=== PATIENT | female | born 1980 | race African-American/Black ===

== ENCOUNTER 2016-08-31 09:05 | Emergency (ER) | payer OTHER ==
[2016-08-31 09:20] VITALS: BP 109/68; PULSE 98; TEMP 97.8; BMI 23.8
--- NOTE | 2016-08-31 10:12 | PDOC ---
History of Present Illness - General Chief Complaint: Laceration Stated Complaint: LT MID FINGER LACERATION Time Seen by Provider: 08/31/16 09:38 History Source: Patient Exam Limitations: No Limitations - History of Present Illness Initial Comments: 08/31/16 10:16 Chief complaint: Laceration to middle finger cut on knife History of present illness: Patient is a 36-year-old female with no significant medical problems here today with a superficial linear laceration to her left middle finger palmar aspect after cutting it on a knife at 1 AM today. Patient has full range of motion of left middle finger. Patient denies any numbness of her left middle finger or hand. Patient is up-to-date with tetanus. Patient denies any pain currently and finger. Occurred: reports: this morning (at 1 am ) Severity: reports: moderate (left middle palmar finger) Pain Location: reports: upper extremity (middle left finger) Method of Injury: Yes: other (cut on knife]) Modifying Factors: improves with: other (direct pressure) Past History - Past Medical History Allergies/Adverse Reactions: Allergies Allergy/AdvReac Type Severity Reaction Status Date / Time No Known Allergies Allergy Verified 08/31/16 09:07 Home Medications: Ambulatory Orders No Home Medications 0 dose .ROUTE UTDICT 03/26/13 Other medical history: DENIES. - Psycho/Social/Smoking Cessation Hx Anxiety: No Suicidal Ideation: No Smoking Status: No Smoking History: Current some day smoker Have you smoked in the past 12 months: Yes Number of Cigarettes Smoked Daily: 0 Information on smoking cessation initiated: No Review of Systems - Review of Systems Able to Perform ROS?: Yes Constitutional: No: Symptoms Reported HEENTM: No: Symptoms Reported Respiratory: No: Symptoms reported Cardiac (ROS): No: Symptoms Reported ABD/GI: No: Symptoms Reported Musculoskeletal: No: Symptoms Reported Integumentary: Yes: Other (left middle finger laceration palmar aspect ) Neurological: No: Symptoms reported *Physical Exam - Vital Signs Last Vital Signs Temp Pulse Resp BP Pulse Ox 97.8 F 98 H 19 109/68 99 08/31/16 09:07 08/31/16 09:07 08/31/16 09:07 08/31/16 09:07 08/31/16 09:07 - Physical Exam General Appearance: Yes: Appropriately Dressed Comments:: 02/24/17 10:13 radial pulse left 4 + Extremity: positive: Normal Capillary Refill, Normal Range of Motion (left middle finger at pip, DIP, MCP jt ) Integumentary: positive: Other (linear superfical laceration left palmar middle finger middle phalanx) Neurologic: positive: Normal Response, Respond to painful stimul (left middle finger ). negative: Numbness, Sensory Deficit (left middle finger) Procedures - Consent Consent obtained: From Patient - Laceration/Wound Repair Left Volar 3rd digit Finger Wound Length: 2.6 to 5.0 cm Wound Explored: clean Wound's Depth, Shape: superficial, linear Irrigated w/ Saline: Yes Betadine Prep: Yes Anesthesia: 1% Lidocaine Amount of Anesthetic (ccs): 3 Wound Repaired With: Sutures Number of Sutures: 7 (interrupted) Deep Layer Suture Size/Type: 5:0 Number of Deep Layer Sutures: 0 Sterile Dressing Applied: Yes Splint Applied: No Sling Applied: No Medical Decision Making - Medical Decision Making 08/31/16 10:17 Patient is a 36-year-old female with no significant medical problems here today with a superficial linear laceration to her left middle finger palmar aspect after cutting it on a knife at 1 AM today. Patient has full range of motion of left middle finger. Patient denies any numbness of her left middle finger or hand. Patient is up-to-date with tetanus. Patient denies any pain currently and finger. Laceration left middle finger palmar aspect Plan: 7 interrupted sutures left middle finger up to date with tetanus *DC/Admit/Observation/Transfer Diagnosis at time of Disposition: Laceration of finger of left hand Qualifiers: Encounter type: initial encounter Qualified Code(s): S61.219A - Laceration without foreign body of unspecified finger without damage to nail, initial encounter - Discharge Dispostion Disposition: HOME Condition at time of disposition: Stable - Patient Instructions Additional Instructions: Left middle finger with antibacterial soap and water pat dry and apply tiny amount of bacitracin ointment twice daily cover with Band-Aid the day when out of the home let air out at night Return to emergency room for suture removal in 10-14 days or sooner if any redness around wound or discharge from wound Take acetaminophen as needed for pain or ibuprofen as directed by automotive manufacturer Patient Voiced understanding of discharge instructions and all questions were answered
== END 2016-08-31 10:24 | disposition home or self-care (01) ==
LOC: JER 09:05 → JERFT 09:05
PROC: 0HQGXZZ Repair Left Hand Skin, External Approach (ICD-10-PCS; principal; 2016-08-31)
DX: S61.213A Laceration without foreign body of left middle finger without damage to nail, initial encounter (principal); W26.0XXA Contact with knife, initial encounter; Y93.89 Activity, other specified; Y92.89 Other specified places as the place of occurrence of the external cause
CPT/HCPCS: 12002-25; 99282-25

== ENCOUNTER 2016-09-12 17:56 | Emergency (ER) | payer OTHER ==
[2016-09-12 18:23] VITALS: BP 95/65; PULSE 81; TEMP 97.8; BMI 22.8
--- NOTE | 2016-09-12 18:33 | PDOC ---
Suture Removal/Wound Check HPI - History of Present Illness Chief Complaint: Suture/Staple Removal(Here) Stated Complaint: STITCHES REMOVAL Time Seen by Provider: 09/12/16 18:21 History Source: Yes: Patient Exam Limitations: Yes: No Limitations [facility]ated at[facility] Date of Last ED visit: 08/31/16 - Previous ED Treatment Type of procedure performed on last visit: Yes: Laceration Repair Tetanus Immunization: Yes: Up to Date Antibiotics Prescribed: No - Onset of Previous Treatment Date of Occurence: 08/31/16 Comment:: 36 yo F presents for suture removal. She states that there has been some pain to the area. No purulent drainage. She slammed the same finger in a door a few days ago and noted a little bleeding. Past History - Past Medical History Allergies/Adverse Reactions: Allergies No Known Allergies Allergy (Verified 09/12/16 18:19) Home Medications: Ambulatory Orders No Home Medications 0 dose .ROUTE UTDICT 03/26/13 - Reproductive History LMP: 03/26/13 - Immunization History Tetanus Status: More than 5 years - Social History Smoking History: No Smoking Status: Never smoked Number of Ciarettes Per Day: 0 Alcohol Use: occasionally Drug Use: none Suture Removal/Wound Check PE - Physical Exam Laceration/Wound Check Symptoms: reports: Pain, Bleeding, Improved Comments: GENERAL: Well appearing. SKIN: Healing L 3rd finger laceration. No drainage. Location of Laceration/Wound: left: Finger *Review of Systems - Review of Systems Able to Perform ROS?: Yes Comments:: GENERAL/CONSTITUTIONAL: No fever or chills. No weakness. MUSCULOSKELETAL: No joint or muscle swelling or pain. No neck or back pain. SKIN: No rash. +Healing L finger lac. NEUROLOGIC: No headache, vertigo, loss of consciousness, or change in strength/ sensation. Procedures - Additional Procedures Additional Procedures: other Progress: 09/12/16 18:34 7 Sutures removed. Of note, the sutures were greasy with neosporin that the patient had applied. Small piece of the suture remained in the wound, unable to remove it. Counseled patient to let the wound dry. Medical Decision Making - Medical Decision Making 09/12/16 18:51 Attempted to call patient to to reexamine the wound and attempt to remove the small piece of suture, she had already departed ED despite being asked to wait for DC paperwork. *DC/Admit/Observation/Transfer Diagnosis at time of Disposition: Visit for suture removal - Discharge Dispostion Disposition: HOME Condition at time of disposition: Stable Admit: No
== END 2016-09-12 18:57 | disposition home or self-care (01) ==
LOC: JERFT 17:56
DX: Z48.02 Encounter for removal of sutures (principal)
CPT/HCPCS: 99281-25

== ENCOUNTER 2020-01-15 07:55 | Emergency (ER) | payer OTHER ==
[2020-01-15 08:09] VITALS: BP 102/62; PULSE 83; TEMP 98.6; BMI 20.9
[2020-01-15 09:27] LABS: HCG,QUALITATIVE URINE Negative
--- NOTE | 2020-01-15 09:43 | PDOC ---
History of Present Illness - General Chief Complaint: Pain, Acute Stated Complaint: ABD PAIN Time Seen by Provider: 01/15/20 09:00 - History of Present Illness Initial Comments: 39 YOF h/o eczema presents with nausea, constipation, rectal bleeding, back and suprapubic pain of 4 days duration. Per patient she began to experience some rectal pain and abdominal discomfort 4 days prior to arrival. 3 days ago she began to have difficulty w/ bowel movements, feeling that her stool was very hard and difficult/painful to pass. After passing stool she noted blood on the toilet paper. Her abdominal, lower back, and rectal pain are continuous however are exacerbated when attempting to defecate. She has used topical application of coconut oil to her anus in an attempt to relieve her symptoms, however she reports that this has not helped. She delivered two children to term w/o complication. She has no history of abdominal surgery. Her last BM was yesterday and she is still passing flatus. She denies urinary symptoms. She denies diarrhea, vomiting, CP, and SOB, fever or chills. 01/15/20 15:21 Past History - Travel History Traveled outside of the country in the last 30 days: No Close contact w/someone who was outside of country & ill: No - Medical History Allergies/Adverse Reactions: Allergies Allergy/AdvReac Type Severity Reaction Status Date / Time No Known Allergies Allergy Verified 01/15/20 08:02 Home Medications: Ambulatory Orders No Home Medications 0 dose .ROUTE UTDICT 03/26/13 Glycerin Suppository Adult - 1 each RC DAILY PRN #7 supp.rect 01/15/20 Nitrofurantoin Macrocrystal [Nitrofurantoin] 100 mg PO BID 5 Days #10 capsule 01/15/20 COPD: No - Psycho-Social/Smoking History Smoking Status: No Smoking History: Current some day smoker Have you smoked in the past 12 months: Yes Number of Cigarettes Smoked Daily: 0 Information on smoking cessation initiated: Yes 'Breaking Loose' booklet given: 09/12/16 - Substance Abuse Hx (Audit-C & DAST Scrn) How often the patient has a drink containing alcohol: Monthly or less Score: In Men: 4 or > Positive; In Women: 3 or > Positive: 1 Screen Result (Pos requires Nsg. Audit-10AR): Negative In the last yr the pt used illegal drug/Rx for NonMed reason: No Score: Yes response is considered Positive: 0 Screen Result (Positive result requires Nsg. DAST-10): Negative Review of Systems - Review of Systems Constitutional: Yes: See HPI HEENTM: Yes: See HPI Respiratory: Yes: See HPI Cardiac (ROS): Yes: See HPI ABD/GI: Yes: See HPI : Yes: See HPI Musculoskeletal: Yes: See HPI Integumentary: Yes: See HPI Neurological: Yes: See HPI Endocrine: Yes: See HPI Hematologic/Lymphatic: Yes: See HPI *Physical Exam - Vital Signs Last Vital Signs Temp Pulse Resp BP Pulse Ox 98.6 F 83 18 102/62 100 01/15/20 07:55 01/15/20 07:55 01/15/20 07:55 01/15/20 07:55 01/15/20 07:55 - Physical Exam General Appearance: Yes: Nourished, Appropriately Dressed Respiratory/Chest: positive: Lungs Clear, Normal Breath Sounds, Respiratory Distress Cardiovascular: positive: Regular Rhythm, Regular Rate, S1, S2 Gastrointestinal/Abdominal: positive: Normal Bowel Sounds, Tender, Flat, Soft ED Treatment Course - ADDITIONAL ORDERS Additional order review: Laboratory Results 01/15/20 08:25 Urine HCG, Qual Negative Medical Decision Making - Medical Decision Making 39 YOF h/o eczema presents with nausea, constipation, rectal bleeding, back and suprapubic pain of 4 days duration, exacerbated when attempting to defecate. She has no history of abdominal surgery. Her last BM was yesterday and she is still passing flatus. She denies urinary symptoms. She denies diarrhea, vomiting, CP, and SOB, fever or chills. Vital stable on arrival, exam revealing only of suprapubic pain to palpation. ddx includes but is not limited to constipation, hemorrhoids, anal fissure, UTI. plan: UA, Urine Reassess: UA revealing of 1+ leukocyte esterase, will give 1 dose nitrofurantoin in ED and discharge with prescription for abx and glycerin suppository. Dispo: DC to home with instructions to take prescribed meds, drink fluids, eat foods high in fiber, and continue physical activity. Discharge - Discharge Information Problems reviewed: Yes Clinical Impression/Diagnosis: Constipation Qualifiers: Constipation type: unspecified constipation type Qualified Code(s): K59.00 - Constipation, unspecified Condition: Good Disposition: HOME - Admission No - Additional Discharge Information Prescriptions: Glycerin Suppository Adult - 1 each RC DAILY PRN #7 supp.rect PRN Reason: Constipation Nitrofurantoin Macrocrystal [Nitrofurantoin] 100 mg PO BID 5 Days #10 capsule - Follow up/Referral Referrals: Onesimo Morrow [Primary Care Provider] - - Patient Discharge Instructions Patient Printed Discharge Instructions: DI for Urinary Tract Infection (UTI), DI for Constipation Additional Instructions: You were seen in the emergency department for symptoms of constipation and rectal bleeding. You were given a urinalysis which showed evidence of a UTI. You also received a urine test which was negative. You also received a rectal exam which revealed no abnormalities. You were prescribed antibiotics to treat your UTI. You were considered medically stable and discharged with instructions to maintain a healthy diet high in fiber, drink plenty of fluids, and exercise regularly. If your symptoms persist you can take an over the counter stool softener such as Colace. Please return to the emergency department if your symptoms worsen, you find excessive blood in your stool, you begin vomiting, or have fever. - Post Discharge Activity Work/Back to School Note: Back to Work
[2020-01-15 09:46] LABS: EPI CELLS 18 /uL (0-25.1); HYALINE CASTS 1 /uL (0-3.1); URINE APPEARANCE CLEAR; URINE BACTERIA 369 /uL (0-1359); URINE BILIRUBIN NEGATIVE (NEGATIVE); URINE COLOR YELLOW; URINE GLUCOSE (UA) NEGATIVE (NEGATIVE); URINE KETONE NEGATIVE (NEGATIVE); URINE LEUK ESTERASE 1+ (NEGATIVE); URINE NITRITE NEGATIVE (NEGATIVE); URINE PROTEIN NEGATIVE (NEGATIVE); URINE RBC 4 /uL (0-23.9); URINE UROBILINOGEN 0.2 mg/dL (0.2-1.0); URINE WBC 30 /uL (0-25.8)
[2020-01-15] MEDS ORDERED: NITROFURANTOIN MACROCRYSTAL 50 MG CAPSULE (FP) PO SCH (10:00)
[2020-01-15] MEDS ORDERED: NITROFURANTOIN MACROCRYSTAL 50 MG CAPSULE (FP) ONE (10:15)
--- NOTE | 2020-01-15 10:41 | PDOC ---
Attending Attestation - Resident Resident Name: Nino Wilson - ED Attending Attestation I have performed the following: I have examined & evaluated the patient, The case was reviewed & discussed with the resident, I agree w/resident's findings & plan, Exceptions are as noted - HPI HPI: 01/15/20 12:08 see below - Physicial Exam PE: 01/15/20 12:01 GENERAL: The patient is awake, alert, and fully oriented, Nontoxic - in no acute distress. ABDOMEN: Soft, nontender, No guarding, no rebound. No CVA tenderness - Medical Decision Making 01/15/20 11:00 39y F presents with complain tof lower abdominl pain and constipation, p noted some blood on her toilet paper today. Patient notes that approximately 1 week she has been having difficulty having a bowel movement and has been having very hard stools. stool is brown, no blood on stool, blood onl on tisue and she feels a small mass when she whiped. also notes some dysuria/frequency. Patient does endorse changing her diet as she has been working longer hours and has been eating unhealthfully which is atypical for her. Patient denies any fever, chills, nausea, vomiting on exam pt well apering no distress abd: soft nontender suspect constipation, possible hemorrhoidal recommend diet changes, fiber, hydration abd soft nonender dont think thre is an acute surgical process ua sugestive of uti will treat with abx return precautions were discusse d Discharge - Discharge Information Problems reviewed: Yes Clinical Impression/Diagnosis: Constipation Qualifiers: Constipation type: unspecified constipation type Qualified Code(s): K59.00 - Constipation, unspecified Condition: Good Disposition: HOME - Additional Discharge Information Prescriptions: Glycerin Suppository Adult - 1 each RC DAILY PRN #7 supp.rect PRN Reason: Constipation Nitrofurantoin Macrocrystal [Nitrofurantoin] 100 mg PO BID 5 Days #10 capsule - Follow up/Referral Referrals: Onesimo Morrow [Primary Care Provider] - - Patient Discharge Instructions Patient Printed Discharge Instructions: DI for Urinary Tract Infection (UTI), DI for Constipation Additional Instructions: You were seen in the emergency department for symptoms of constipation and rectal bleeding. You were given a urinalysis which showed evidence of a UTI. You also received a urine test which was negative. You also received a rectal exam which revealed no abnormalities. You were prescribed antibiotics to treat your UTI. You were considered medically stable and discharged with instructions to maintain a healthy diet high in fiber, drink plenty of fluids, and exercise regularly. If your symptoms persist you can take an over the counter stool softener such as Colace. Please return to the emergency department if your symptoms worsen, you find excessive blood in your stool, you begin vomiting, or have fever. - Post Discharge Activity Work/Back to School Note: Back to Work
== END 2020-01-15 11:43 | disposition home or self-care (01) ==
LOC: JER 07:55
DX: K59.00 Constipation, unspecified (principal)
CPT/HCPCS: 36415; 81003; 84703; 87086; 99284-25

== ENCOUNTER 2020-04-05 05:36 | Emergency (ER) | payer OTHER ==
[2020-04-05] MEDS ORDERED: DIPHTH,PERTUSS(ACELL),TET 0.5 ML DISP.SYRIN IM ONE ×2 (05:50→05:57)
[2020-04-05] MEDS ORDERED: CEPHALEXIN MONOHYDRATE 500 MG CAPSULE (UD) PO ONE (05:50)
[2020-04-05] MEDS ORDERED: BACITRACIN 15 GM TUBE TOPICAL OINTMENT TP ONE (05:51)
[2020-04-05 05:54] VITALS: BP 138/72; PULSE 79; TEMP 98.9; BMI 210.3
--- OUTSIDE RECORDS SUMMARY | 2020-04-05 05:55 | XMS ---
:1980 Author Organization [facility] Support Name Relationship Address Phone [employer] Unavailable [address] [place] [address] [employer] Unavailable [address] [phone] [place] [address] MARIA ANTONIA MARCOS FRIEND [address] [place] [address] JAYE, DARIEL SISTER [address] [place] [address] JAYE, DARIEL Sister [address] [place] [address] Re-disclosure Warning The records that you are about to access may contain information from federally- assisted alcohol or drug abuse programs. If such information is present, then the following federally mandated warning applies: This information has been disclosed to you from records protected by federal confidentiality rules (42 CFR part 2). The federal rules prohibit you from making any further disclosure of this information unless further disclosure is expressly permitted by the written consent of the person to whom it pertains or as otherwise permitted by 42 CFR part 2. A general authorization for the release of medical or other information is NOT sufficient for this purpose. The Federal rules restrict any use of the information to criminally investigate or prosecute any alcohol or drug abuse patient.The records that you are about to access may contain highly sensitive health information, the redisclosure of which is protected by Article 27-F of the [facility] Public Health law. If you continue you may haveaccess to information: Regarding HIV / AIDS; Provided by facilities licensed or operated by the [facility] Office of Mental Health; or Provided by the [facility] Office for People With Developmental Disabilities. If such information is present, then the following [facility] mandated warning applies: This information has been disclosed to you from confidential records which are protected by state law. State law prohibits you from making any further disclosure of this information without the specific written consent of the person to whom it pertains, or as otherwise permitted by law. Any unauthorized further disclosure in violation of state law may result in a fine or chcf sentence or both. A general authorization for the release of medical or other information is NOT sufficient authorization for further disclosure. Insurance Providers Payer name Policy type / Policy ID Covered Covered green party's Policy Plan Coverage type green party ID relationship to [employer] [id number] SP [id number]
[2020-04-05] MEDS ORDERED: BACITRACIN 0.9 GM PACKET ONE (05:57)
[2020-04-05] MEDS ORDERED: CEPHALEXIN MONOHYDRATE 500 MG CAPSULE (UD) ONE (05:57)
--- NOTE | 2020-04-05 05:57 | PDOC ---
History of Present Illness - General Chief Complaint: Injury Stated Complaint: L HAND LAC Time Seen by Provider: 04/05/20 05:52 History Source: Patient - History of Present Illness Initial Comments: 04/05/20 05:52 39-year-old female reports that she cut her right hand on a metal license plate at 10 PM last night. Patient reports that she washed her wound with wound wash and water thoroughly. Patient reports that she is concerned that her hand will get infected and was advised to by mother to have a tetanus vaccine. Patient has full ROM to fingers has sensation and able to make a fist. No past medical history Last tetanus unknown Past History - Medical History Allergies/Adverse Reactions: Allergies Allergy/AdvReac Type Severity Reaction Status Date / Time No Known Allergies Allergy Verified 04/05/20 05:52 Home Medications: Ambulatory Orders No Home Medications 0 dose .ROUTE UTDICT 03/26/13 Glycerin Suppository Adult - 1 each RC DAILY PRN #7 supp.rect 01/15/20 Nitrofurantoin Macrocrystal [Nitrofurantoin] 100 mg PO BID 5 Days #10 capsule 01/15/20 Cephalexin Monohydrate [Keflex -] 250 mg PO Q8H #21 capsule 04/05/20 COPD: No - Psycho-Social/Smoking History Smoking Status: No Smoking History: Current some day smoker Have you smoked in the past 12 months: Yes Number of Cigarettes Smoked Daily: 0 'Breaking Loose' booklet given: 09/12/16 Review of Systems - Review of Systems Able to Perform ROS?: Yes Is the patient limited Kazakh proficient: No Integumentary: Yes: Other (Laceration) *Physical Exam - Vital Signs 04/05/20 05:53 Last Vital Signs Temp Pulse Resp BP Pulse Ox 98.9 F 79 20 138/72 100 04/05/20 05:49 04/05/20 05:49 04/05/20 05:49 04/05/20 05:49 04/05/20 05:49 - Physical Exam General Appearance: Yes: Appropriately Dressed Integumentary: positive: Other (2 cm laceration to palm of right hand proximal to 4th and 5th digit. full sensation and rom to fingers. 1 cm abrasion to palm of right , able to make a fist finger warm to touch. ) Neurologic: positive: Fully Oriented, Alert Medical Decision Making - Medical Decision Making 04/05/20 06:02 A: hand laceration P: Wound cleaned bacitracin applied. Patient was given the first dose of cephalexin in the ED. Discussed with patient at extent of the importance of following up with hand surgery for wound checks and appropriate wound healing. Patient verbalized understanding. Strict return precautions were reviewed with patient. Discharge - Discharge Information Problems reviewed: Yes Clinical Impression/Diagnosis: Laceration of right hand Qualifiers: Encounter type: initial encounter Foreign body presence: without foreign body Qualified Code(s): S61.411A - Laceration without foreign body of right hand, initial encounter Condition: Fair Disposition: HOME - Additional Discharge Information Prescriptions: Cephalexin Monohydrate [Keflex -] 250 mg PO Q8H #21 capsule - Follow up/Referral Referrals: Onesimo Morrow [Primary Care Provider] - Armond Castellanos MD [Staff Physician] - Call tomorrow - Patient Discharge Instructions Patient Printed Discharge Instructions: DI for Minor Laceration Additional Instructions: Keep wound clean and dry. Apply bacitracin to the area. It is important that you follow-up with a hand surgeon as soon as possible. Take cephalexin as prescribed. a referral name has been given to you. Return to the emergency room for any worsening symptoms - Post Discharge Activity Work/Back to School Note: Back to Work
[2020-04-05] MEDS ORDERED: BACITRACIN 15 GM TUBE TOPICAL OINTMENT ONE (06:00)
== END 2020-04-05 06:19 | disposition home or self-care (01) ==
LOC: JER 05:36
PROC: 3E0234Z Introduction of Serum, Toxoid and Vaccine into Muscle, Percutaneous Approach (ICD-10-PCS; principal; 2020-04-05)
DX: S61.411A Laceration without foreign body of right hand, initial encounter (principal)
CPT/HCPCS: 90471; 90715; 99284-25